=== PATIENT | male | born 1965 | race Caucasian/White ===

== ENCOUNTER 2017-11-07 18:17 | Emergency (ER) | payer SELFPAY ==
[2017-11-07 18:26] VITALS: BP 148/98; PULSE 72; TEMP 99.3; BMI 26.4
[2017-11-07] MEDS ORDERED: KETOROLAC TROMETHAMINE 60 MG/2 ML VIAL IM ONE (18:30)
--- NOTE | 2017-11-07 18:33 | PDOC ---
History of Present Illness - General History Source: Patient Exam Limitations: No Limitations - History of Present Illness Initial Comments: 11/07/17 18:41 The patient is 52 a year old male with a significant PMH of gallbladder removal who presents to the emergency department with acute right shoulder pain for 3 days. The patient reports that he slipped and tried to catch himself by grabbing onto a fence 3 days ago. The patient reports that when he grabbed onto the fence he felt an instant pain and burning in his right shoulder. The patient reports that the pain radiates down his right arm. The patient reports that after the incident he has had trouble lifting things with his right hand. He describes the pain as constant. He reports taking tylenol last night. The patient denies any other symptoms. He denies any chest pain, shortness of breath , headache and dizziness. He denies fever, chills, nausea, vomit, diarrhea and constipation. He denies any urinary symptoms. The patient denies any other complaints. <Hyacinth Kennedy - Last Filed: 11/07/17 18:41> - History of Present Illness Initial Comments: Physical exam: Alert and oriented well-developed well-nourished no acute distress cheerful and cooperative Afebrile, vital signs stable Head atraumatic. PERRLA. ENT clear Neck supple without bruit mass or nodes Chest clear No chest wall or rib cage tenderness or deformity CV regular without murmur rub or gallop pulses full and symmetric no JVD or edema no bruits Abdomen soft nontender without mass or organomegaly Neurological C2 to 12 intact. Strength full and symmetric. No focal sensory or motor deficits. Gait stable and unimpaired Extremities: Patient indicates pain over the posterior right shoulder and trapezius. He has pain with abduction of the shoulder, but there is full range of motion. There is no point tenderness or deformity of the glenoid of the proximal humerus. Pulses are full. Again, no sensory or motor deficits to the extremity. Impression: There is no sign of fracture. The patient's symptoms are consistent with a possible neuromuscular injury. There is no tenderness or deformity of the cervical spine suggestive of a neck injury. It is most likely musculoskeletal or peripheral nerve inflammation Plan: Toradol was administered with considerable relief of discomfort. I was arm was placed in a sling. The patient was advised to rest, continue anti- inflammatories, and follow-up with orthopedist if no improvement 2-3 days. Fully ambulatory and in no significant pain or other distress upon discharge to follow-up as directed <Vitaliy Sterling - Last Filed: 11/10/17 07:30> - General Chief Complaint: Pain Stated Complaint: RIGHT SHOULDER PAIN Time Seen by Provider: 11/07/17 18:19 Past History <Hyacinth Kennedy - Last Filed: 11/07/17 18:41> - Past Medical History COPD: No Hypercholesterolemia: Yes - Surgical History Cholecystectomy: Yes - Immunization History Td Vaccination: Yes Immunization Up to Date: Yes - Suicide/Smoking/Psychosocial Hx Smoking Status: No Smoking History: Never smoked Have you smoked in the past 12 months: No Number of Cigarettes Smoked Daily: 0 Information on smoking cessation initiated: No Hx Alcohol Use: No Drug/Substance Use Hx: No Substance Use Type: None Hx Substance Use Treatment: No <Vitaliy Sterling - Last Filed: 11/10/17 07:30> - Past Medical History Allergies/Adverse Reactions: Allergies Allergy/AdvReac Type Severity Reaction Status Date / Time No Known Allergies Allergy Verified 11/07/17 18:18 Home Medications: Ambulatory Orders Ketorolac Tromethamine [Toradol] 10 mg PO Q6H #20 tablet 11/07/17 hydrOXYzine PAMOATE [Vistaril -] 25 - 50 mg PO TID #20 capsule 11/07/17 Review of Systems - Review of Systems Able to Perform ROS?: Yes Comments:: 11/07/17 18:41 CONSTITUTIONAL: Absent: fever, chills, diaphoresis, generalized weakness, malaise, loss of appetite HEENT: Absent: rhinorrhea, nasal congestion, throat pain, throat swelling, difficulty swallowing, mouth swelling, ear pain, eye pain, visual Changes CARDIOVASCULAR: Absent: chest pain, syncope, palpitations, irregular heart rate, lightheadedness , peripheral edema RESPIRATORY: Absent: cough, shortness of breath, dyspnea with exertion, orthopnea, wheezing, stridor, hemoptysis GASTROINTESTINAL: Absent: abdominal pain, abdominal distension, nausea, vomiting, diarrhea, constipation, melena, hematochezia GENITOURINARY: Absent: dysuria, frequency, urgency, hesitancy, hematuria, flank pain, genital pain MUSCULOSKELETAL: (+) acute right shoulder pain Absent: arthralgia, joint swelling SKIN: Absent: rash, itching, pallor HEMATOLOGIC/IMMUNOLOGIC: Absent: easy bleeding, easy bruising, lymphadenopathy, frequent infections ENDOCRINE: Absent: unexplained weight gain, unexplained weight loss, heat intolerance, cold intolerance NEUROLOGIC: Absent: headache, focal weakness or paresthesias, dizziness, unsteady gait, seizure, mental status changes, bladder or bowel incontinence PSYCHIATRIC: Absent: anxiety, depression, suicidal or homicidal ideation, hallucinations. <Hyacinth Kennedy - Last Filed: 11/07/17 18:41> *Physical Exam - Vital Signs Last Vital Signs Temp Pulse Resp BP Pulse Ox 99.3 F 72 20 148/98 98 11/07/17 18:18 11/07/17 18:18 11/07/17 18:18 11/07/17 18:18 11/07/17 18:18 <Hyacinth Kennedy - Last Filed: 11/07/17 18:41> - Vital Signs Last Vital Signs Temp Pulse Resp BP Pulse Ox 99.3 F 72 20 148/98 98 11/07/17 18:18 11/07/17 18:18 11/07/17 18:18 11/07/17 18:18 11/07/17 18:18 <Vitaliy Sterling - Last Filed: 11/10/17 07:30> *DC/Admit/Observation/Transfer - Attestations Scribe Attestion: 11/07/17 18:42 Documentation prepared by Hyacinth Kennedy, acting as medical physics professor for Vitaliy Orozco MD. <Hyacinth Kennedy - Last Filed: 11/07/17 18:41> - Discharge Dispostion Decision to Admit order: No <Vitaliy Sterling - Last Filed: 11/10/17 07:30> Diagnosis at time of Disposition: Musculoskeletal pain - Discharge Dispostion Disposition: HOME Condition at time of disposition: Improved - Prescriptions Prescriptions: hydrOXYzine PAMOATE [Vistaril -] 25 - 50 mg PO TID #20 capsule Ketorolac Tromethamine [Toradol] 10 mg PO Q6H #20 tablet - Referrals Referrals: Rai Das MD [Staff Physician] - 3 days - Patient Instructions Printed Discharge Instructions: How to Use a Sling, DI for Musculoskeletal Pain - Post Discharge Activity Forms/Work/School Notes: Back to Work
[2017-11-07] MEDS ORDERED: KETOROLAC TROMETHAMINE 60 MG/2 ML VIAL ONE (18:44)
== END 2017-11-07 19:10 | disposition home or self-care (01) ==
LOC: FER 18:17
PROC: 3E0233Z Introduction of Anti-inflammatory into Muscle, Percutaneous Approach (ICD-10-PCS; principal; 2017-11-07)
DX: M79.1 Myalgia (principal); E78.00 Pure hypercholesterolemia, unspecified; W18.40XA Slipping, tripping and stumbling without falling, unspecified, initial encounter; Y93.89 Activity, other specified; Y92.89 Other specified places as the place of occurrence of the external cause
CPT/HCPCS: 99282-25

== ENCOUNTER 2018-11-20 11:28 | Emergency (ER) | payer OTHER | END 2018-11-20 12:47 | disposition home or self-care (01) | LOC: FER 11:28 ==

== ENCOUNTER 2024-01-09 21:52 | Emergency (ER) | payer OTHER ==
[2024-01-09 21:58] VITALS: BP 127/85; PULSE 79; RESP 18; TEMP 99.1; BMI 25.7
[2024-01-09 23:57] LABS: BASO % 0.8 % (0-2.0); EOS % 1.9 % (0-4.5); HEMATOCRIT 45.6 % (35.4-49); HEMOGLOBIN 15.7 GM/dL (11.7-16.9); LYMPH % 30.4 % (8-40); MCHC 34.3 g/dl (32.0-35.9); MEAN CELL VOLUME 93.1 fl (80-96); MEAN PLT VOLUME 7.7 fl (7.5-11.1); MONO % 8.6 % (3.8-10.2); NEUT % 58.3 % (42.8-82.8); PLATELET COUNT 259 10^3/uL (134-434); RDW 13.9 % (11.9-15.9); WHITE BLOOD COUNT 9.9 K/mm3 (4.0-10.0)
[2024-01-10 00:16] LABS: POTASSIUM 4.1 mmol/L (3.5-5.1)
[2024-01-10 00:19] LABS: ALBUMIN 3.6 g/dl (3.4-5.0); BLOOD UREA NITROGEN 14.9 mg/dL (7-18); CALCIUM 9.1 mg/dL (8.5-10.1)
[2024-01-10 00:22] LABS: CREATININE 0.9 mg/dL (0.55-1.3)
[2024-01-10 00:24] LABS: BILIRUBIN,TOTAL 0.3 mg/dL (0.2-1); TOT PROT 7.6 g/dl (6.4-8.2)
== END 2024-01-10 02:24 | disposition home or self-care (01) ==
LOC: JER 21:52
DX: R07.89 Other chest pain (principal); R00.2 Palpitations; R25.3 Fasciculation; Z20.822 Contact with and (suspected) exposure to COVID-19
CPT/HCPCS: 0241U-QW; 36415; 71046-TC-FY; 80053; 84439; 84443; 84484; 85025; 93005; 93010; 99285-25

== ENCOUNTER 2024-01-14 09:02 | Emergency (ER) | payer OTHER ==
[2024-01-14 09:18] VITALS: BP 127/82; PULSE 66; RESP 16; TEMP 98.8; BMI 27.3
== END 2024-01-14 10:27 | disposition home or self-care (01) ==
LOC: FER 09:02
DX: H92.02 Otalgia, left ear (principal); K11.20 Sialoadenitis, unspecified; R51.9 Headache, unspecified; R22.0 Localized swelling, mass and lump, head
CPT/HCPCS: 99282-25

== ENCOUNTER 2024-03-27 16:31 | Emergency (ER) | payer OTHER ==
[2024-03-27 16:38] VITALS: BP 132/84; PULSE 72; RESP 17; TEMP 98.3; BMI 25.4
[2024-03-27] MEDS ORDERED: KETOROLAC TROMETHAMINE 30 MG/1 ML VIAL ONE (18:17)
[2024-03-27] MEDS: KETOROLAC TROMETHAMINE 30 MG/1 ML VIAL IM ONE (18:25)
== END 2024-03-27 20:40 | disposition home or self-care (01) ==
LOC: FER 16:31
PROC: 3E0233Z Introduction of Anti-inflammatory into Muscle, Percutaneous Approach (ICD-10-PCS; principal; 2024-03-27)
DX: M79.601 Pain in right arm (principal)
CPT/HCPCS: 73070-TC-RT-FY; 73090-TC-RT-FY; 93971; 99284-25